=== PATIENT | female | born 1995 | race Caucasian/White ===

== ENCOUNTER 2017-09-23 05:02 | Emergency (ER) | payer OTHER ==
[2016-07-31 11:07] VITALS: Wt 49.9 kg
[~2017-09-23 05:02] MED LIST: ETON68IM SQ; MIRT-17 PO; MULT-1379 PO; TRAZ-156 PO; VENL75CA58 PO; no home medications
[2017-09-23] MEDS ORDERED: IUD (05:17)
--- NOTE | 2017-09-23 05:17 | ER Report ---
History and Physical Time Seen By MD: 05:16 Hx. of Stated Complaint: Pt reporting sudden right lower quadrant pain that began suddenly. HPI/ROS CHIEF COMPLAINT: Right lower quadrant abdominal pain HISTORY OF PRESENT ILLNESS: 22-year-old female brought in by her mom with several hours of right lower quadrant pain. Patient notes onset approximate 5 hours ago. She notes a pressure like sensation, worse with bumps in the car on the way to the ER. She states it is become more intense over the last 2 hours. She's had severe nausea. She's had no vomiting. She notes normal BM last evening. She just finished her menstrual period approximately one week ago. She recently had an IUD implanted for control 1 month ago. She's had no fevers. She notes no dysuria, frequency or hematuria. REVIEW OF SYSTEMS: Respiratory: No cough, no dyspnea. Cardiovascular: No chest pain, no palpitations. Gastrointestinal: As above Musculoskeletal: No back pain. Allergies: Coded Allergies: No Known Drug Allergies (Unverified , 07/29/16) Home Meds Active Scripts Tramadol Hcl (TRAMADOL HCL) 50 Mg Tablet, 1 TAB PO Q6H Y for PAIN, #15 MG TAKE ONE TO TWO TABLETS BY MOUTH EVERY FOUR TO SIX HOURS NEEDED Prov:LONNIE CRENSHAW DO 09/23/17 Ondansetron Hcl (ZOFRAN) 4 Mg Tablet, 4 MG PO Q6H Y for NAUSEA/VOMITING, #12 Prov:LONNIE CRENSHAW DO 09/23/17 Reported Medications [Iud] No Conflict Check 09/23/17 Multivits,Th W-Fe,Other Min (THERA-M) 1 Each Tablet, 1 EACH PO QDAY 08/02/16 Mirtazapine (REMERON) 15 Mg Tab.rapdis, 7.5 MG PO QHS IF THESE COME IN 15 MG TABLETS - TAKE ONE HALF TABLET BEFORE BEDTIME 08/02/16 Venlafaxine Hcl (EFFEXOR XR) 75 Mg Cap.er.24h, 75 MG PO QDAY 08/02/16 Discontinued Reported Medications Etonogestrel (NEXPLANON) 68 Mg Implant, 68 MG SQ DIRECTED, IMPLANT 07/29/16 Past Medical/Surgical History Depression, previous suicidal attempt 2 Reviewed Nurses Notes: Yes Old Medical Records Reviewed: Yes Hx Smoking: Yes Smoking Status: Light Tobacco Smoker Exposure to Second Hand Smoke?: No Hx Substance Use Disorder: No Hx Alcohol Use: Yes Constitutional Vital Sign - Last 24 Hours 09/23/17 09/23/17 09/23/17 09/23/17 05:09 05:09 05:12 05:14 Temp 98.6 Pulse 93 90 Resp 20 B/P (MAP) 133/82 133/82 (99) 118/72 (87) Pulse Ox 90 90 O2 Delivery Room Air 09/23/17 09/23/17 09/23/17 09/23/17 05:20 05:27 05:32 05:37 Pulse 98 91 91 B/P (MAP) 118/85 (96) Pulse Ox 97 83 91 09/23/17 09/23/17 09/23/17 09/23/17 05:42 05:44 05:47 05:52 Pulse 92 93 B/P (MAP) 124/62 (82) Pulse Ox 100 99 96 09/23/17 09/23/17 09/23/17 09/23/17 06:07 06:10 06:15 06:20 Pulse 105 103 101 B/P (MAP) 103/80 (88) Pulse Ox 96 96 98 98 09/23/17 09/23/17 09/23/17 09/23/17 06:25 06:30 06:35 06:40 Pulse 107 102 105 103 B/P (MAP) 103/67 (79) Pulse Ox 96 98 97 09/23/17 09/23/17 09/23/17 09/23/17 06:45 06:50 06:55 07:00 Pulse 104 107 110 B/P (MAP) 110/78 (89) Pulse Ox 96 97 95 Physical Exam Vital signs stable, afebrile, pulse ox normal General Appearance: The patient is alert, has no immediate need for airway protection and no current signs of toxicity. Moderate distress, slightly pale appearing, skin warm and dry HEENT: Pupils equal and round no injection. Oropharynx without redness or exudate Respiratory: Chest is non tender, lungs are clear to auscultation. Cardiac: regular rate and rhythm Gastrointestinal: Abdomen is soft, moderate right lower quadrant tenderness with some guarding and rebound, no masses, bowel sounds normal. Musculoskeletal: Neck: Neck is supple and non tender. No lymphadenopathy Extremities have full range of motion and are non tender. Skin: No rashes or lesions. DIFFERENTIAL DIAGNOSIS: After history and physical exam differential diagnosis was considered for abdominal pain including but not limited to appendicitis, cholecystitis, gastritis, ovarian cyst and urinary tract infection. Medical Decision Making Data Points Result Diagram: 09/23/17 0532 09/23/17 0532 Laboratory Hematology Test 09/23/17 00:00 09/23/17 05:10 09/23/17 05:32 Urine HCG, Qualitative Negative (NEGATIVE) Urine Color Yellow Urine Clarity Clear Urine pH 5.0 pH (4.8-9.5) Urine Specific Oden 1.028 Urine Protein Negative mg/dL (NEGATIVE) Urine Glucose (UA) Negative mg/dL (NEGATIVE) Urine Ketones Negative mg/dL (NEGATIVE) Urine Blood Negative (NEGATIVE) Urine Nitrite Negative (NEGATIVE) Urine Bilirubin Negative (NEGATIVE) Urine Urobilinogen Negative mg/dL (0.2-1.9) Urine Leukocyte Esterase Negative (NEGATIVE) Urine RBC None /HPF (0-2/HPF) Urine WBC 1 /HPF (0-5/HPF) Urine Squamous Epithelial Cells None /LPF (</=FEW) Urine Bacteria Negative /HPF (NONE-FEW) Urine Mucus Few /HPF (NONE-FEW) Red Blood Count 5.01 M/uL (4.17-5.56) Mean Corpuscular Volume 86.4 fL (80.0-96.0) Mean Corpuscular Hemoglobin 30.1 pg (26.0-33.0) Mean Corpuscular Hemoglobin Concent 34.8 g/dL (32.0-36.0) Red Cell Distribution Width 12.3 % (11.5-14.5) Mean Platelet Volume 8.5 fL (7.2-11.1) Neutrophils (%) (Auto) 66.9 % (39.4-72.5) Lymphocytes (%) (Auto) 23.9 % (17.6-49.6) Monocytes (%) (Auto) 7.2 % (4.1-12.4) Eosinophils (%) (Auto) 1.6 % (0.4-6.7) Basophils (%) (Auto) 0.4 % (0.3-1.4) Nucleated RBC Relative Count (auto) 0.0 /100WBC Neutrophils # (Auto) 7.5 K/uL (2.0-7.4) Lymphocytes # (Auto) 2.7 K/uL (1.3-3.6) Monocytes # (Auto) 0.8 K/uL (0.3-1.0) Eosinophils # (Auto) 0.2 K/uL (0.0-0.5) Basophils # (Auto) 0.0 K/uL (0.0-0.1) Nucleated RBC Absolute Count (auto) 0.00 K/uL Sodium Level 138 mmol/L (137-145) Potassium Level 3.5 mmol/L (3.5-5.0) Chloride Level 102 mmol/L (98-107) Carbon Dioxide Level 25 mmol/L (22-31) Blood Urea Nitrogen 10 mg/dl (7-18) Creatinine 0.70 mg/dl (0.52-1.04) Glomerular Filtration Rate Calc > 60.0 Random Glucose 105 mg/dl (75-110) Calcium Level 8.6 mg/dl (8.4-10.2) Total Bilirubin 0.4 mg/dl (0.2-1.3) Aspartate Amino Transf (AST/SGOT) 25 U/L (0-35) Alanine Aminotransferase (ALT/SGPT) 35 U/L (0-56) Alkaline Phosphatase 86 U/L (0-126) C-Reactive Protein < 0.5 mg/dl (<1.0) Total Protein 7.4 gm/dl (6.3-8.2) Albumin 3.9 g/dl (3.5-5.0) Amylase Level 122 U/L (0-110) Lipase 86 U/L (23-300) Chemistry Test 09/23/17 00:00 09/23/17 05:10 09/23/17 05:32 Urine HCG, Qualitative Negative (NEGATIVE) Urine Color Yellow Urine Clarity Clear Urine pH 5.0 pH (4.8-9.5) Urine Specific Oden 1.028 Urine Protein Negative mg/dL (NEGATIVE) Urine Glucose (UA) Negative mg/dL (NEGATIVE) Urine Ketones Negative mg/dL (NEGATIVE) Urine Blood Negative (NEGATIVE) Urine Nitrite Negative (NEGATIVE) Urine Bilirubin Negative (NEGATIVE) Urine Urobilinogen Negative mg/dL (0.2-1.9) Urine Leukocyte Esterase Negative (NEGATIVE) Urine RBC None /HPF (0-2/HPF) Urine WBC 1 /HPF (0-5/HPF) Urine Squamous Epithelial Cells None /LPF (</=FEW) Urine Bacteria Negative /HPF (NONE-FEW) Urine Mucus Few /HPF (NONE-FEW) White Blood Count 11.3 k/uL (4.5-11.0) Red Blood Count 5.01 M/uL (4.17-5.56) Hemoglobin 15.1 g/dL (12.0-16.0) Hematocrit 43.3 % (34.0-47.0) Mean Corpuscular Volume 86.4 fL (80.0-96.0) Mean Corpuscular Hemoglobin 30.1 pg (26.0-33.0) Mean Corpuscular Hemoglobin Concent 34.8 g/dL (32.0-36.0) Red Cell Distribution Width 12.3 % (11.5-14.5) Platelet Count 233 K/uL (150-450) Mean Platelet Volume 8.5 fL (7.2-11.1) Neutrophils (%) (Auto) 66.9 % (39.4-72.5) Lymphocytes (%) (Auto) 23.9 % (17.6-49.6) Monocytes (%) (Auto) 7.2 % (4.1-12.4) Eosinophils (%) (Auto) 1.6 % (0.4-6.7) Basophils (%) (Auto) 0.4 % (0.3-1.4) Nucleated RBC Relative Count (auto) 0.0 /100WBC Neutrophils # (Auto) 7.5 K/uL (2.0-7.4) Lymphocytes # (Auto) 2.7 K/uL (1.3-3.6) Monocytes # (Auto) 0.8 K/uL (0.3-1.0) Eosinophils # (Auto) 0.2 K/uL (0.0-0.5) Basophils # (Auto) 0.0 K/uL (0.0-0.1) Nucleated RBC Absolute Count (auto) 0.00 K/uL Glomerular Filtration Rate Calc > 60.0 Calcium Level 8.6 mg/dl (8.4-10.2) Total Bilirubin 0.4 mg/dl (0.2-1.3) Aspartate Amino Transf (AST/SGOT) 25 U/L (0-35) Alanine Aminotransferase (ALT/SGPT) 35 U/L (0-56) Alkaline Phosphatase 86 U/L (0-126) C-Reactive Protein < 0.5 mg/dl (<1.0) Total Protein 7.4 gm/dl (6.3-8.2) Albumin 3.9 g/dl (3.5-5.0) Amylase Level 122 U/L (0-110) Lipase 86 U/L (23-300) Urinalysis Test 09/23/17 00:00 09/23/17 05:10 Urine HCG, Qualitative Negative (NEGATIVE) Urine Color Yellow Urine Clarity Clear Urine pH 5.0 pH (4.8-9.5) Urine Specific Oden 1.028 Urine Protein Negative mg/dL (NEGATIVE) Urine Glucose (UA) Negative mg/dL (NEGATIVE) Urine Ketones Negative mg/dL (NEGATIVE) Urine Blood Negative (NEGATIVE) Urine Nitrite Negative (NEGATIVE) Urine Bilirubin Negative (NEGATIVE) Urine Urobilinogen Negative mg/dL (0.2-1.9) Urine Leukocyte Esterase Negative (NEGATIVE) Urine RBC None /HPF (0-2/HPF) Urine WBC 1 /HPF (0-5/HPF) Urine Squamous Epithelial Cells None /LPF (</=FEW) Urine Bacteria Negative /HPF (NONE-FEW) Urine Mucus Few /HPF (NONE-FEW) EKG/Imaging Imaging Results: CT scan of the abdomen and pelvis with IV contrast was obtained. The results of the study are EXAMINATION: CT Abdomen and Pelvis With Contrast 09/23/2017 5:23 AM HISTORY: RLQ pain r/o appy TECHNIQUE: Spiral scan was through the abdomen and pelvis during injection of nonionic iodinated intravenous contrast. Contrast: 75 mL of IV Isovue 370. One of the following dose optimization techniques was utilized in the performance of this exam: Automated exposure control; adjustment of the mA and/ or kV according to the patient's size; or use of an iterative reconstruction technique. Specific details can be referenced in the facility's radiology CT exam operational policy. COMPARISON STUDIES: none. FINDINGS: Liver / biliary: Slightly elongated liver which appears to simply be a Waldemar's lobe configuration. Trace periportal edema in conjunction with prominent cava typically reflects IV fluids given the ER. Pancreas: negative Spleen: negative Adrenal glands: negative Kidneys / retroperitoneum: negative Pelvic structures: Anteverted uterus with a well positioned indwelling IUD. Ovaries are unremarkable by CT. No significant pelvic free fluid. Bowel / peritoneum / mesenteries: Fluid within loops of bowel which are nondistended. The cecal tip is in the pelvis. The appendix is not well-defined adjacent to the cecum. Certainly, no thickened or inflamed appendix is evident. No ileocecal area inflammatory change. Moderate amount of fecal material in the colon, mostly in the ascending and transverse portions. No free air or free fluid. Vessels: negative Musculoskeletal / Body wall: Slight levoscoliotic lumbar curvature. Lymph node assessment: negative Lower chest: negative IMPRESSION: 1. The appendix is not well demonstrated adjacent to a pelvic cecal tip. Literature has shown that a difficult to identify appendix typically excludes appendicitis. There is some fluid in bowel which is nonspecific but can indicate gastroenteritis. There is also a moderate volume of fecal material in the colon more towards the right side. 2. No significant acute finding otherwise. The study was read by the radiologist. I viewed the images myself on the PACS system. ED Course/Re-evaluation Clinical Indication for ER IV: Hydration, IV Access ED Course Patient was admitted to an examination room. H&P was done. The differential diagnoses was considered. On clinical examination. Patient has significant right lower quadrant tenderness. There is guarding and rebound. Patient's treated with IV fluid hydration, antiemetics and pain medication. A CT scan is ordered after the patient's basic test is noted to be negative. The CT scan shows no evidence of an acute appendicitis. The appendix is not well visualized. Radiology advises it likely not an acute appendicitis. Patient's white blood cell count is normal. Agents cautioned to return for any worsening. The CT scan is suggestive of fecal stasis of the right: As the cause of her pain. She is advised a program of MiraLAX and magnesium citrate to evacuate her bowels. She is advised ibuprofen for pain. She's given a limited supply of Phenergan and tramadol for symptomatically relief. Decision to Disposition Date: Sep 23, 2017 Decision to Disposition Time: 06:37 Depart Departure Latest Vital Signs Vital Signs Date Time Temp Pulse Resp B/P (MAP) Pulse Ox O2 Delivery O2 Flow Rate FiO2 09/23/17 07:00 110/78 (89) 09/23/17 06:55 110 95 09/23/17 05:09 98.6 20 Room Air Impression: Primary Impression: Right lower quadrant abdominal pain Additional Impressions: Constipation IUD (intrauterine device) in place Condition: Improved Disposition: HOME OR SELF-CARE Referrals: JANEEN KEY MD (PCP) New Scripts Tramadol Hcl (TRAMADOL HCL) 50 Mg Tablet 1 TAB PO Q6H Y for PAIN, #15 MG TAKE ONE TO TWO TABLETS BY MOUTH EVERY FOUR TO SIX HOURS NEEDED Prov: LONNIE CRENSHAW DO 09/23/17 Ondansetron Hcl (ZOFRAN) 4 Mg Tablet 4 MG PO Q6H Y for NAUSEA/VOMITING, #12 Prov: LONNIE CRENSHAW DO 09/23/17 Patient Instructions: Abdominal Pain (ED), Constipation (ED) Additional Instructions: Follow clear liquid diet for 24-48 hours Take MiraLAX one capful 2-3 times a day for the next 2-3 days Take one bottle of magnesium citrate laxative Take ibuprofen 200 mg 3 tablets 3 times a day for inflammatory pain relief Follow-up with your primary care if unimproved in 3-5 days Return to the ER for any worsening Problem Qualifiers Additional Impressions: Constipation Constipation type: unspecified constipation type Qualified Codes: K59.00 - Constipation, unspecified LONNIE CRENSHAW DO Sep 23, 2017 05:17
[2017-09-23] MEDS ORDERED: NS(*) 0.9% 1000 ML BAG 1,000 ML IV ONE (05:23)
[2017-09-23] MEDS ORDERED: ONDANSETRON 4 MG/2 ML VIAL IVP ONE (05:25)
[2017-09-23] MEDS ORDERED: fentaNYL CITR 100 MCG/2 ML AMP IVP ONE (05:25)
[2017-09-23] MEDS ORDERED: IOPAMIDOL 76% 75 ML INFUS BTL 75 ML ONE (05:35)
[2017-09-23] MEDS ORDERED: NS 0.9% 50 ML VIAL 50 ML ONE (05:35)
[2017-09-23 05:38] LABS: PLATELET COUNT, AUTOMATED 233 K/uL (150-450)
--- NOTE | 2017-09-23 06:43 | RADIOLOGY IMAGING REPORT ---
FACILITY: [facility] PATIENT NAME: J Luis Davis : 1995 MR: [id number] V: [id number] EXAM DATE: ORDERING PHYSICIAN: LONNIE CRENSHAW TECHNOLOGIST: Location: [facility] Patient: J Luis Davis : 1995 Visit/Account:[id number] Date of Sevice: 09/23/2017 EXAMINATION: CT Abdomen and Pelvis With Contrast 09/23/2017 5:23 AM HISTORY: RLQ pain r/o appy TECHNIQUE: Spiral scan was through the abdomen and pelvis during injection of nonionic iodinated in travenous contrast. Contrast: 75 mL of IV Isovue 370. One of the following dose optimization techniques was utilized in the performance of this exam: Autom ated exposure control; adjustment of the mA and/or kV according to the patient's size; or use of an i terative reconstruction technique. Specific details can be referenced in the facility's radiology C T exam operational policy. COMPARISON STUDIES: none. FINDINGS: Liver / biliary: Slightly elongated liver which appears to simply be a Waldemar's lobe configuration. T race periportal edema in conjunction with prominent cava typically reflects IV fluids given the ER. Pancreas: negative Spleen: negative Adrenal glands: negative Kidneys / retroperitoneum: negative Pelvic structures: Anteverted uterus with a well positioned indwelling IUD. Ovaries are unremarkab le by CT. No significant pelvic free fluid. Bowel / peritoneum / mesenteries: Fluid within loops of bowel which are nondistended. The cecal tip i s in the pelvis. The appendix is not well-defined adjacent to the cecum. Certainly, no thickened or i nflamed appendix is evident. No ileocecal area inflammatory change. Moderate amount of fecal material in the colon, mostly in the ascending and transverse portions. No free air or free fluid. Vessels: negative Musculoskeletal / Body wall: Slight levoscoliotic lumbar curvature. Lymph node assessment: negative Lower chest: negative IMPRESSION: 1. The appendix is not well demonstrated adjacent to a pelvic cecal tip. Literature has shown that a difficult to identify appendix typically excludes appendicitis. There is some fluid in bowel which is nonspecific but can indicate gastroenteritis. There is also a moderate volume of fecal material in t he colon more towards the right side. 2. No significant acute finding otherwise. Report Dictated By: Paramjit Lockhart MD at 09/23/2017 6:28 AM Report E-Signed By: Paramjit Lockhart MD at 09/23/2017 6:39 AM WSN:[id number]
[2017-09-23] MEDS ORDERED: ONDA4TAB97 PO (06:50)
[2017-09-23] MEDS ORDERED: TRAM-420 PO (06:50)
[2017-09-23] MEDS ORDERED: KETOROLAC 30 MG/ML VIAL IVP ONE (06:55)
[2017-09-23 07:00] VITALS: BP 110/78
== END 2017-09-23 07:13 | disposition home or self-care (01) ==
LOC: ER 05:20
DX: K59.00 Constipation, unspecified (principal)
CPT/HCPCS: 74177; 81001; 81025; 82150; 83690; 85025; 86140; 96361; 96374; 96375; 99284; J1885; J2405; J3010; J7030; J7050; Q9967; 82040; 82247; 82310; 82374; 82435; 82565; 82947; 84075; 84132; 84155; 84295; 84450; 84460; 84520